=== PATIENT | female | born 1980 | race African-American/Black ===

== ENCOUNTER 2017-05-26 14:06 | Emergency (ER) | payer SELFPAY ==
[2017-05-26 14:13] VITALS: TEMP 97.7
[2017-05-26] MEDS ORDERED: ONDANSETRON 4 MG/2 ML VIAL ONE (14:44)
[2017-05-26] MEDS ORDERED: ONDANSETRON DISINTEGRATING 4 MG TAB ONE (14:46)
[2017-05-26] MEDS ORDERED: HYDROmorphONE/DILAUDID 1 MG/ML SYR IVP ONE ×2 (15:04→15:41)
--- NOTE | 2017-05-26 15:04 | EDPHY ---
H & P Stated Complaint: uterine ablation in january/ period since/yesterday vag bldg/ pelvic pressu Time Seen by Provider: 05/26/17 15:01 - Personal History LMP (Females 10-55): Now Current Tetanus/Diphtheria Vaccine: Yes - Medical/Surgical History Hx Asthma: No Hx Chronic Respiratory Disease: No Hx Diabetes: No Hx Cardiac Disease: No Hx Renal Disease: No Hx Cirrhosis: No Hx Alcoholism: No Hx HIV/AIDS: No Hx Splenectomy or Spleen Trauma: No Other PMH: uterine ablation - Social History Smoking Status: Never smoked Constitutional: Initial Vital Signs Temperature (C) 36.5 C 05/26/17 14:11 Heart Rate 92 05/26/17 14:11 Respiratory Rate 18 05/26/17 14:11 Blood Pressure 188/91 H 05/26/17 14:11 O2 Sat (%) 98 05/26/17 14:11 O2 Delivery Mode Room Air Allergies/Adverse Reactions: No Known Allergies Allergy (Unverified 05/26/17 14:10) Home Medications: Medication Instructions Recorded HYDROcodone/APAP 10/325 [Blakeslee 1 - 2 each PO Q4-6PRN PRN #20 tab 05/26/17 10/325] Tranexamic Acid 1,300 mg PO TID #30 tablet 05/26/17 Medical Decision Making - Diagnostics Imaging Results: Imaging Impressions Pelvic/Renal Ultrasound 05/26/17 15:11 Impression: 1. Limited study as above with no definite etiology for the patient's symptoms. 2. Subserosal fibroids. 3. Nonvisualization of the ovaries. Findings discussed with Dr. Yong Vega, on May 26, 2017 at 1632 hours. ED Course/Re-evaluation: CHIEF COMPLAINT: Persistent uterine bleeding HISTORY OF PRESENT ILLNESS: This patient is a 36 year old female complaining of severe uterine pain and bleeding onset yesterday. She had a uterine ablation under general anesthesia in January of this year, four months ago. She has been bleeding for 2-3 weeks each month since that time. She receives blood transfusions and iron infusions, and sees a boat rigger in her home city of [place], [place]. Yesterday, she noted increased pain and a pressure sensation, followed by profuse bleeding. She denies history of bleeding disorders. No fever, vomiting, chest pain, shortness of breath, or other associated symptoms. REVIEW OF SYSTEMS: A 10 point review of systems was performed and is negative with the exception of the elements mentioned in the history of present illness. PHYSICAL EXAM: HR, BP, O2 Sat, RR. Temp noted General Appearance: Alert, well hydrated, appropriate, and non-toxic appearing. Head: Atraumatic without scalp tenderness or obvious injury Eyes: Pupils equal, round, reactive to light and accommodation, EOMI, no trauma , no injection. Ears: Clear bilaterally, no perforation, normal landmarks Nose: Atraumatic, no rhinorrhea, clear. Throat: There is no erythema or exudates, no lesions, normal tonsils, mucus membranes moist. Neck: Supple, 2+ carotid upstroke, nontender, no lymphadenopathy. Respiratory: No retractions, no distress, no wheezes, and no accessory muscle use. Lungs are clear to auscultation bilaterally. Cardiovascular: Regular rate and rhythm, no murmurs, rubs, or gallops. Bilateral carotid, radial, dorsalis pedis, and posterior tibial pulses intact. Good capillary refill all extremities. Gastrointestinal: Abdomen is soft, nontender, non-distended, no masses, no rebound, no guarding, no peritoneal signs. Musculoskeletal: Normal active ROM of all extremities, atraumatic. Neurological: Alert, appropriate, and interactive. The patient has normal DTRs and non-focal cranial nerves, motor, sensory, and cerebellar exam. Skin: No rashes, good turgor, no nodules on palpation. 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 DIFFERENTIAL DIAGNOSIS: The differential diagnosis for the patient's vaginal bleeding included but was not limited to ectopic , menses, miscarriage, and dysfunctional uterine bleeding. MEDICAL DECISION MAKING: This patient is a 36 year old female with history of dysfunctional uterine bleeding presenting with menorrhagia accompanied by severe pain onset yesterday. Plan for 2 doses IV TXA. Plan for US. Labs including CBC, BMP, BHCG, liver, lipase. Consult with gynecology. 16:[address] Bartlett, radiologist. US negative for acute processes. 17:[address] Dunn, [facility]. Plan to discharge in good condition with instructions to follow up with gynecology and a prescription for TXA for bleeding control and Blakeslee for pain management. The patient is comfortable with this plan. - Data Points Laboratory Results: Laboratory Results 05/26/17 14:50 05/26/17 14:50 05/26/17 05/26/17 05/26/17 14:50 14:50 14:50 WBC 9.70 10^3/uL H 10^3/uL (3.80-9.50) RBC 4.54 10^6/uL 10^6/uL (4.18-5.33) Hgb 11.6 g/dL L g/dL (12.6-16.3) POC Hgb Hct 36.2 % L % (38.0-47.0) POC Hct MCV 79.7 fL L fL (81.5-99.8) MCH 25.6 pg L pg (27.9-34.1) MCHC 32.0 g/dL L g/dL (32.4-36.7) RDW 15.8 % H % (11.5-15.2) Plt Count 359 10^3/uL 10^3/uL (150-400) MPV 10.0 fL fL (8.7-11.7) Neut % (Auto) 62.8 % % (39.3-74.2) Lymph % (Auto) 28.5 % % (15.0-45.0) [place] % (Auto) 6.6 % % (4.5-13.0) Eos % (Auto) 1.4 % % (0.6-7.6) Baso % (Auto) 0.3 % % (0.3-1.7) Nucleat RBC Rel Count 0.0 % % (0.0-0.2) Absolute Neuts (auto) 6.09 10^3/uL 10^3/uL (1.70-6.50) Absolute Lymphs (auto) 2.76 10^3/uL 10^3/uL (1.00-3.00) Absolute Monos (auto) 0.64 10^3/uL 10^3/uL (0.30-0.80) Absolute Eos (auto) 0.14 10^3/uL 10^3/uL (0.03-0.40) Absolute Basos (auto) 0.03 10^3/uL 10^3/uL (0.02-0.10) Absolute Nucleated RBC 0.00 10^3/uL 10^3/uL (0-0.01) Immature Gran % 0.4 % % (0.0-1.1) Immature Gran # 0.04 10^3/uL 10^3/uL (0.00-0.10) POC Sodium Sodium 142 mEq/L mEq/L (134-144) POC Potassium Potassium 4.0 mEq/L mEq/L (3.5-5.2) POC Chloride Chloride 106 mEq/L mEq/L (97-110) Carbon Dioxide 22 mEq/l mEq/l (22-31) Anion Gap 14 mEq/L mEq/L (8-16) POC BUN BUN 11 mg/dL mg/dL (7-23) Creatinine 0.7 mg/dL mg/dL (0.6-1.0) POC Creatinine Estimated GFR > 60 Glucose 122 mg/dL H mg/dL (70-100) POC Glucose Calcium 11.0 mg/dL H mg/dL (8.5-10.4) Phosphorus 3.4 mg/dL mg/dL (2.5-4.5) Total Bilirubin 0.5 mg/dL mg/dL (0.1-1.4) Conjugated Bilirubin 0.3 mg/dL mg/dL (0.0-0.5) Unconjugated Bilirubin 0.2 mg/dL mg/dL (0.0-1.1) AST 22 IU/L IU/L (14-46) ALT 37 IU/L IU/L (9-52) Alkaline Phosphatase 83 IU/L IU/L (38-126) Total Protein 8.0 g/dL g/dL (6.3-8.2) Albumin 4.3 g/dL g/dL (3.5-5.0) Lipase 87.0 IU/L IU/L (23-300) Beta HCG, Qual NEGATIVE 05/26/17 14:47 WBC RBC Hgb POC Hgb 12.9 gm/dL gm/dL (12.6-16.3) Hct POC Hct 38 % % (38-47) MCV MCH MCHC RDW Plt Count MPV Neut % (Auto) Lymph % (Auto) [place] % (Auto) Eos % (Auto) Baso % (Auto) Nucleat RBC Rel Count Absolute Neuts (auto) Absolute Lymphs (auto) Absolute Monos (auto) Absolute Eos (auto) Absolute Basos (auto) Absolute Nucleated RBC Immature Gran % Immature Gran # POC Sodium 141 mEq/L mEq/L (134-144) Sodium POC Potassium 3.6 mEq/L mEq/L (3.3-5.0) Potassium POC Chloride 104 mEq/L mEq/L (97-110) Chloride Carbon Dioxide Anion Gap POC BUN 10 mg/dL mg/dL (7-23) BUN Creatinine POC Creatinine 0.6 mg/dL mg/dL (0.6-1.0) Estimated GFR Glucose POC Glucose 130 mg/dL H mg/dL (70-100) Calcium Phosphorus Total Bilirubin Conjugated Bilirubin Unconjugated Bilirubin AST ALT Alkaline Phosphatase Total Protein Albumin Lipase Beta HCG, Qual Medications Given: Discontinued Medications Hydromorphone HCl (Dilaudid) 1 mg IVP EDNOW ONE Stop: 05/26/17 15:05 Last Admin: 05/26/17 15:12 Dose: 1 mg Hydromorphone HCl (Dilaudid) 1 mg IVP EDNOW ONE Stop: 05/26/17 15:42 Last Admin: 05/26/17 15:47 Dose: 1 mg Tranexamic Acid 1,000 mg/ (Sodium Chloride) 110 mls @ 660 mls/hr IV ONCE ONE Stop: 05/26/17 15:14 Last Admin: 05/26/17 15:25 Dose: 110 mls Sodium Chloride (Ns) 1,000 mls @ 0 mls/hr IV EDNOW ONE; Wide Open PRN Reason: Protocol Stop: 05/26/17 15:12 Last Admin: 05/26/17 15:24 Dose: 1,000 mls Tranexamic Acid 1,000 mg/ (Sodium Chloride) 110 mls @ 660 mls/hr IV ONCE ONE Stop: 05/26/17 15:19 Last Admin: 05/26/17 15:42 Dose: Not Given Ondansetron HCl (Zofran) 4 mg IVP EDNOW ONE Stop: 05/26/17 15:12 Last Admin: 05/26/17 15:40 Dose: 4 mg Point of Care Test Results: 05/26/17 14:47 POC Sodium 141 POC Potassium 3.6 POC Chloride 104 POC BUN 10 POC Creatinine 0.6 POC Glucose 130 H Departure - Departure Disposition: Home, Routine, Self-Care Clinical Impression: Dysfunctional uterine bleeding Menorrhagia Qualifiers: Menorrahagia type: with irregular cycle Qualified Code(s): N92.1 - Excessive and frequent menstruation with irregular cycle Condition: Good Instructions: Dysfunctional Uterine Bleeding (ED), Menorrhagia (ED) Additional Instructions: 1. Follow up with an [facility] doctor for continued management of symptoms. We have referred you to our horticultural farm manager environmental designer, Dr. Dunn, and consulted with her today. Call tomorrow for an appointment. 2. Take your TXA as prescribed for excessive bleeding. 3. Take Blakeslee as prescribed as needed for pain. 4. Return to the Emergency Department for uncontrollable bleeding, severe pain, weakness or fainting, or other worsening of condition. Referrals: [facility] [Other] - As per Instructions Sandra Dunn MD [Medical Doctor] - As per Instructions Prescriptions: HYDROcodone/APAP 10/325 [Blakeslee 10/325] 1 - 2 each PO Q4-6PRN PRN #20 tab PRN Reason: Pain, Moderate Tranexamic Acid 1,300 mg PO TID #30 tablet Report Scribed for: Yong Vega Report Scribed by: Dinah Rojas Date of Report: 05/26/17 Time of Report: 15:10
[2017-05-26] MEDS ORDERED: TRANEXAMIC ACID 1,000 MG in NS 100 ML IV ONE ×2 (15:05→15:10)
[2017-05-26] MEDS ORDERED: ONDANSETRON 4 MG/2 ML VIAL IVP ONE (15:11)
[2017-05-26] MEDS ORDERED: NS 1,000 ML IV ONE (15:11)
[2017-05-26 15:18] LABS: % IMMATURE GRANULYOCYTES 0.4 % (0.0-1.1); ABSOLUTE IMMATURE GRANULOCYTES 0.04 10^3/uL (0.00-0.10); ADD DIFF? NO; ADD MORPH? NO; ADD SCAN? NO; ATYPICAL LYMPHOCYTE FLAG 40 (0-99); FRAGMENT RBC FLAG 0 (0-99); HEMATOCRIT 36.2 % (38.0-47.0); HEMOGLOBIN 11.6 g/dL (12.6-16.3); LEFT SHIFT FLG 0 (0-99); LIPEMIA HEMOLYSIS FLAG 80 (0-99); MEAN CELL HEMOGLOBIN 25.6 pg (27.9-34.1); MEAN CELL VOLUME 79.7 fL (81.5-99.8); PLATELET CLUMPS FLAG 0 (0-99); PLATELET COUNT 359 10^3/uL (150-400); RED BLOOD CELL COUNT 4.54 10^6/uL (4.18-5.33); RED CELL DISTRIBUTION WIDTH 15.8 % (11.5-15.2)
[2017-05-26 15:35] LABS: ALANINE AMINOTRANSFERASE 37 IU/L (9-52); ALBUMIN 4.3 g/dL (3.5-5.0); ALKALINE PHOSPHATASE 83 IU/L (38-126); ANION GAP 14 mEq/L (8-16); ASPARTATE AMINOTRANSFERASE 22 IU/L (14-46); BILIRUBIN,TOTAL 0.5 mg/dL (0.1-1.4); BILIRUBIN-CONJUGATED 0.3 mg/dL (0.0-0.5); BILIRUBIN-UNCONJUGATED 0.2 mg/dL (0.0-1.1); CARBON DIOXIDE 22 mEq/l (22-31); CHLORIDE 106 mEq/L (97-110); CREATININE 0.7 mg/dL (0.6-1.0); GLOMERULAR FILTRATION RATE > 60; GLUCOSE 122 mg/dL (70-100); SODIUM 142 mEq/L (134-144)
[2017-05-26 17:24] VITALS: BP 138/93; PULSE 90; RESP 16; O2SAT 96
== END 2017-05-26 17:30 | disposition home or self-care (01) ==
DX: N93.8 Other specified abnormal uterine and vaginal bleeding (principal); N92.1 Excessive and frequent menstruation with irregular cycle; E86.9 Volume depletion, unspecified
CPT/HCPCS: 82947-QW; 96374; J1170; J2405